=== PATIENT | male | born 1990 | race African-American/Black ===

== ENCOUNTER 2019-04-12 18:04 | Emergency (ER) | payer MEDICAID ==
[~2019-04-12] VITALS: Ht 177.8 cm; Wt 90.7 kg
[2019-04-12 18:28] VITALS: BP 137/96
--- NOTE | 2019-04-12 19:38 | NUR ---
PT AMBULATED TO [facility]
[2019-04-12 19:55] VITALS: BP 137/96
--- NOTE | 2019-04-12 19:55 | NUR ---
Patient discharged with v/s stable. Written and verbal after care instructions given and explained. Patient alert, oriented and verbalized understanding of instructions. Ambulatory with steady gait. All questions addressed prior to discharge. ID band removed. Patient advised to follow up with PMD. Rx of LITHIUM, REMERON, SEROQUEL WAS given. Patient educated on indication of medication including possible reaction and side effects. Opportunity to ask questions provided and answered. PT WAS ASSESSED AND D/C BY DR. WATTERS
== END 2019-04-12 19:55 | disposition home or self-care (01) ==
LOC: MED 18:04
DX: F20.9 Schizophrenia, unspecified (principal); Z76.0 Encounter for issue of repeat prescription; F31.9 Bipolar disorder, unspecified
CPT/HCPCS: 99283

== ENCOUNTER 2019-05-02 11:18 | Emergency (ER) | payer MEDICAID ==
[~2019-05-02] VITALS: Ht 177.8 cm; Wt 90.7 kg
[2019-05-02 11:33] VITALS: BP 132/96
--- NOTE | 2019-05-02 11:42 | NUR ---
DR URIAS EVALUATING PT AT BEDSIDE
--- NOTE | 2019-05-02 11:48 | NUR ---
PT PRESENTS FOR MED REFILL OF KLONOPIN AND VENTOLIN. MED HX: ASTHMA, BIPOLAR, ANXIETY
--- NOTE | 2019-05-02 12:16 | NUR ---
Patient discharged with v/s stable. Written and verbal after care instructions given and explained. Patient alert, oriented and verbalized understanding of instructions. Ambulatory with steady gait. All questions addressed prior to discharge. ID band removed. Patient advised to follow up with PMD. Rx of KLONOPIN AND VENTOLIN given. Patient educated on indication of medication including possible reaction and side effects. Opportunity to ask questions provided and answered.
[2019-05-02 12:29] VITALS: BP 132/96
== END 2019-05-02 12:16 | disposition home or self-care (01) ==
LOC: MED 11:18
DX: R06.02 Shortness of breath (principal); F41.9 Anxiety disorder, unspecified; J45.909 Unspecified asthma, uncomplicated; Z76.0 Encounter for issue of repeat prescription
CPT/HCPCS: 81002; 81025; 99283